=== PATIENT | male | born 1970 | race Caucasian/White ===

== ENCOUNTER 2017-02-04 08:51 | Outpatient (CLI) | payer OTHER ==
--- NOTE | 2017-02-04 12:43 | Diagnostic Imaging Report ---
STANLEY CELAYA - RIP [facility] [address] [facility] [address] [address] Report Submission Date: Feb 04, 2017 9:47:28 AM CDT Patient Study Name: CARMINE RAO Date: Feb 04, 2017 9:12:04 AM CDT Modality Type: US Gender: M Description: US ABD LIMITED : 72 Institution: [facility] Physician: STANLEY CELAYA Examination: Ultrasound gallbladder History: Epigastric discomfort Findings: Sonographic evaluation of the right upper quadrant demonstrates the gallbladder multiple stones layering within the gallbladder. Ringdown involving the superior margin of the gallbladder wall. Gallbladder wall measures 1.5 mm. Common bile duct measures 5.3 mm. No intrahepatic biliary dilation. Liver demonstrates normal homogeneous echogenicity. No mass or cyst. Normal flow on color analysis. Normal Doppler analysis. Right kidney measures 12.3 cm in length. No cortical mass or cyst. No hydronephrosis. Pancreatic region without gross irregularity. Impression: Numerous gallstones. No evidence for gall bladder wall inflammation or abnormal common bile duct dilation. Adenomyomatosis. Electronically signed on Feb 04, 2017 9:47:28 AM CDT by: Zach MUIR
== END 2017-02-04 08:52 ==
LOC: RAD 08:51
PROVIDERS: ATTEND Family Medicine
DX: D13.5 Benign neoplasm of extrahepatic bile ducts (principal); K80.80 Other cholelithiasis without obstruction
CPT/HCPCS: 76705

== ENCOUNTER 2018-07-12 16:10 | Outpatient (CLI) | payer OTHER ==
--- NOTE | 2018-07-13 06:35 | Diagnostic Imaging Report ---
VALORIE HENDERSON [facility] [address] [facility].[address] [address] Report Submission Date: Jul 12, 2018 5:21:14 PM BEHAVIORAL MEDICAL DIRECTOR Patient Study Name: CARMINE RAO Date: Jul 12, 2018 4:41:14 PM BEHAVIORAL MEDICAL DIRECTOR Modality Type: DX Gender: M Description: CHEST 2VIEW : 72 Institution: [facility] Physician: VALORIE HENDERSON Examination: PA and lateral chest. 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 TACHYCARDIA, SOA ON EXERTION, PT STATES FOR 2-3 MONTHS, WORSENING RECENTLY Comparison exam: None provided. Findings: PA and lateral views of the chest demonstrates a normal cardiac and mediastinal silhouette. No focal infiltrate. No blunting of the costophrenic margins. Osseous structures are appropriate for age. Impression: No acute pulmonary process. Electronically signed on Jul 12, 2018 5:21:14 PM BEHAVIORAL MEDICAL DIRECTOR by: Zach MUIR
== END 2018-07-12 16:11 ==
LOC: LAB 16:10
PROVIDERS: ATTEND Nurse Practitioner Family
DX: R00.0 Tachycardia, unspecified (principal); R06.02 Shortness of breath; R53.83 Other fatigue
CPT/HCPCS: 71046